=== PATIENT | male | born 1990 ===

== ENCOUNTER 2022-11-13 01:19 | Inpatient (IN) | payer OTHER, SELFPAY ==
[2022-11-13 01:56] VITALS: BMI 28.3
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
[2022-11-13 08:46] VITALS: BP 136/73; PULSE 66; RESP 18; TEMP 36.6; O2SAT 98
[2022-11-13] MEDS: Acetaminophen 325 MG TABLET 650 MG PO (08:52)
[2022-11-13 11:10] VITALS: BMI 30.9
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
[2022-11-13 18:00] VITALS: BP 133/58; PULSE 69; RESP 16; TEMP 36.6; O2SAT 98
[2022-11-14 06:00] VITALS: BP 127/56; PULSE 64; RESP 16; TEMP 36.3; O2SAT 99
--- NOTE | 2022-11-14 14:25 | P.DS_ITS ---
DS: Providers Provider Date of Service: 11/14/22 Date of admission: 11/13/22 01:19 Date of discharge: 11/14/22 Primary care physician: Unknown Physician Admitting clinician: Paty Zapata Attending physician on admission: Austin Lambert Consults: 11/13/22 09:14 Consult to Hospitalist Routine Consulting Provider: Hospitalist Reason For Exam: [facility] transfer Attending physician on discharge: Austin Lambert Discharging clinician: Paty Zapata DS: Diagnosis Discharge Diagnosis (1) Alcohol use disorder: Status: Acute (2) Acute stress reaction: Status: Acute (3) Grief: Status: Acute DS: Medications Discharge Medications Home Medications: Home Medications Medication Instructions Recorded Confirmed No Known Home Meds 11/13/22 11/13/22 Mental Status Exam Mental Status Exam Patient Appearance: Appropriate Patient Orientation: Person, Place, Time and Situation Level of Consciousness: Alert Patient Behavior: Guarded, Talkative, Cooperative, Resistive to Care, Fatigued, Distractible and Good Eye Contact Mood Description: Constricted and Sad Affect Description: Constricted Patient Cognition Impaired: No Ability to Follow Directions: Good Speech Pattern: Spontaneous Speech Memory Description: Intact Hallucinations: None Delusions: Not Present Perceptual Disturbances: Derealization Thought Process: Distracted and Rumination Thought Content: positive for Circumstantial, positive for Suicidal Ideation (denies) and positive for Homicidal Ideation (denies) Depressive Symptoms: Increased Irritability and Thoughts of /Suicide (denies) Judgement: Fair DS: Summary Hospital Course Hospital Course: Admission to adult psychiatry after the suicide of his father on 11/10/22 and resulting intoxication and behavioral dyscontrol. Pt reports a history of alcohol use disorder, he has been working on sobriety but drank after learning of his father's suicide. Pt signed a three day notice on admission-denied SI/HI plan or intent. Pt worked with the team and his family. He is discharged to attend his father's services. Family is supportive of this plan and did advocate for discharge. They will offer support and supervision if needed. Pt is aware he may call or return as needed. He reports he is training for the [employer] and this provides structure for him and he does not believe he will need anything beyond out patient psychotherapy. Time spent discussing smoking cessation with patient: 3 to 10 minutes Status at Discharge Functional status at discharge: independent ambulation Overall status at discharge: patient is progressing back to baseline Time Spent with Patient Time attestation: Total time managing care of this patient today ____ minutes. Time spent: Less than 30 minutes Discharge Plan Discharge Anticipated Discharge Date/Time: 11/14/22 15:52 Patient Disposition: Home, Self-Care Discharge Diagnosis: Acute Stress Reaction with Aggression Alcohol Use Disorder Grief-Complex Referrals: [facility] [Other] (Walk in if needed) [facility] [Other] - 11/17/22 (Patient referred to [facility] for outpatient therapy serv ices. Patient should follow-up with agency after discharge as appointments were unable to be obtained before discharge.) Discharge Medications: No Action No Known Home Meds Discharge Orders: Discharge Order (Routine); Ordered 11/14/22 Ordered By: Paty Zapata Diet: Advance to usual diet Activity on Discharge: As tolerated Stand Alone Forms: Patient Portal Discharge page, Community Support Care Plan Goals: Mood and Behavioral Stabilization Health Concerns: Mood and Behavioral Stabilization Sobriety Plan of Treatment: Connect with identified out patient providers Call and or return as needed Use crisis services as needed [phone] Maintain sobriety Assessment: non psychotic non manic non suicidal non homicidal no behavioral issues or issues of concern during this admission. Discharge Date/Time: 11/14/22 14:44
== END 2022-11-14 14:44 | disposition home or self-care (01) | DRG 755 ==
PROVIDERS: Admitting Provider Psychiatry & Neurology Psychiatry; Visit Provider Clinical Nurse Specialist Psychiatric/Mental Health, Adult
DX: F43.29 Adjustment disorder with other symptoms (principal); F10.20 Alcohol dependence, uncomplicated; F43.0 Acute stress reaction; Z87.891 Personal history of nicotine dependence